=== PATIENT | female | born 1935 | race Caucasian/White ===

== ENCOUNTER → 2018-11-09 | Outpatient (CLI) | payer OTHER ==
[~2018-11-09] VITALS: Ht 175.3 cm; Wt 107.5 kg
[~2018-11-09] MED LIST: ADULT ASPIRIN R81 MG PO; AEROSPAN8.9 GM NASAL; ALLOPURINOL 10100 M2 PO; CALCI-CHEW500 MG PO; CARDIZEM CD 18180 M3 PO; CELEBREX50 MG PO; CELEXA40 MG PO; CITRUCEL479 GM PO; CLARITIN10 M3 PO; LEVOTHYROXINE100 MCG PO; LIPITOR10 MG PO; PLAVIX 75 MG TA75 M1 PO; ZANTAC300 MG PO; ZITHROMAX TRI-500 MG PO
[2018-11-09 12:37] LABS: HEMATOCRIT 28.9 % (37.0-47.0); HEMOGLOBIN 9.4 gm/dL (12.0-15.0); MCH 35.9 pg (26.0-34.0); MCHC 32.7 g/dL (28.0-37.0); RBC 2.63 mil/uL (4.20-5.00); RDW 17.9 % (10.5-14.5); WBC 12.4 thou/uL (4.0-11.0)
[2018-11-09 12:39] VITALS: BP 127/34
[2018-11-09 12:48] LABS: CALCIUM 8.8 mg/dL (8.5-10.1); CREATININE 5.9 mg/dL (0.6-1.0); POTASSIUM 4.1 mmol/L (3.5-5.1)
== END | disposition home or self-care (01) ==
LOC: SPEC 11:53
PROVIDERS: Nuclear Medicine Nuclear Cardiology
DX: I70.238 Atherosclerosis of native arteries of right leg with ulceration of other part of lower leg (principal); I70.1 Atherosclerosis of renal artery; I25.10 Atherosclerotic heart disease of native coronary artery without angina pectoris; I12.9 Hypertensive chronic kidney disease with stage 1 through stage 4 chronic kidney disease, or unspecified chronic kidney disease; N18.5 Chronic kidney disease, stage 5; I25.2 Old myocardial infarction; E78.5 Hyperlipidemia, unspecified; E78.00 Pure hypercholesterolemia, unspecified; E66.09 Other obesity due to excess calories; Z85.42 Personal history of malignant neoplasm of other parts of uterus; Z83.3 Family history of diabetes mellitus; Z82.49 Family history of ischemic heart disease and other diseases of the circulatory system; Z79.01 Long term (current) use of anticoagulants; Z79.82 Long term (current) use of aspirin; Z79.899 Other long term (current) drug therapy; Z99.2 Dependence on renal dialysis

== ENCOUNTER → 2018-11-16 | Outpatient (CLI) | payer OTHER ==
[~2018-11-16] VITALS: Ht 175.3 cm; Wt 107.5 kg
[~2018-11-16] MED LIST changes: +CELEBREX 200 M200 M1 PO; -CELEBREX50 MG PO; +COLACE100 MG PO; +COZAAR 25 MG TA25 M1 PO; +IMDUR 30 MG TAB30 M1 PO; +LASIX 40 MG TAB40 M2 PO; +NEPHROCAPS SOFT1 CAP PO; +NITROGLYCERIN0.4 MG SUBLING; +TUMS PO
[2018-11-16 11:06] VITALS: BP 107/35
== END | disposition home or self-care (01) ==
LOC: SPEC 08:14
DX: I70.212 Atherosclerosis of native arteries of extremities with intermittent claudication, left leg (principal); I25.10 Atherosclerotic heart disease of native coronary artery without angina pectoris; L97.929 Non-pressure chronic ulcer of unspecified part of left lower leg with unspecified severity; I12.0 Hypertensive chronic kidney disease with stage 5 chronic kidney disease or end stage renal disease; N18.5 Chronic kidney disease, stage 5; Z99.2 Dependence on renal dialysis; E78.00 Pure hypercholesterolemia, unspecified; Z95.5 Presence of coronary angioplasty implant and graft; Z83.3 Family history of diabetes mellitus; E66.9 Obesity, unspecified

== ENCOUNTER 2018-11-23 06:48 | Inpatient (IN) | payer OTHER ==
[~2018-11-23] VITALS: Ht 175.3 cm; Wt 108.2 kg
--- NOTE | ~2018-11-23 | O ---
[facility] [place] [address] OPERATIVE REPORT Name: SHERRY TOLLIVER Room #: 226-P [facility] IN M.R.#: [id number] Admission: 11/23/18 ������������������ Attend Phys: Silas Myers MD Discharge: 11/27/18 ������������������ Date of : 35 Report #: [id number] THIS REPORT FOR: //name// CC: FAM unknown Silas Mo DATE OF SERVICE: 11/24/2018 SURGEON: Demetrius Saravia DPM PREOPERATIVE DIAGNOSIS: Gangrene and osteomyelitis, toes, left foot. POSTOPERATIVE DIAGNOSIS: Gangrene and osteomyelitis, toes, left foot. PROCEDURE: Transmetatarsal amputation, left foot. ANESTHESIA: General endotracheal. HEMOSTASIS: None. COMPLICATIONS: None. DESCRIPTION OF PROCEDURE: The patient was taken to the OR in satisfactory condition and placed on the table in the supine position. Following satisfactory administration of general endotracheal intubation anesthesia, a total of 15 mL of a 50:50 mixture of 1% plain lidocaine and 0.5% plain Marcaine was used circumscribing the left forefoot. A well-padded ankle tourniquet was placed around the left ankle in case hemostasis was required. The foot was then prepped and draped in the usual sterile manner. A surgical marker was used to draw out the planned surgical incision with 2 semielliptical-type incisions. A 15 blade was used to make the incision through skin and dermis tissue. All bleeders were clamped and bovied as deemed necessary. The incision was carried down to the level of the deep fascia. The extensor and flexor tendons were identified. They were retracted as far distally as possible and transected proximally. The incision was carried down to the level of bone. A lanier elevator was used to free the periosteal tissue proximal to the surgical neck of the metatarsals. A power sagittal saw was used to create an osteotomy proximal to the second metatarsal head. This was made through and through. The length of the second metatarsal was then used as a reference to make the bone cuts in the first, third, fourth and fifth metatarsals. These were done through and through. The bone cuts were made in an angle from distal to proximal in the medial aspect of the first metatarsal and the lateral aspect of the fifth metatarsal was also transected with a power sagittal saw. Any remaining capsular tissue or tendinous structures were resected from the plantar aspect of the surgical flap. It was deemed necessary to reduce the length of the second [facility] [address] [place] [address] OPERATIVE REPORT Name: SHERRY TOLLIVER Room #: 226-P DIS IN .R.#: [id number] Admission: 11/23/18 ������������������ Attend Phys: Silas Myers MD Discharge: 11/27/18 ������������������ Date of : 35 Report #: [id number] metatarsal and this was done with a power sagittal saw. A manual bone rasp was used to smooth the stumps of the metatarsals. A copious sterile saline antibiotic flush was performed. Any remaining bleeders were clamped and bovied as deemed necessary. Excellent perfusion to the surgical flap was appreciated. Hemostasis was not required during the case. The tissue was beefy red and healthy. No gangrenous tissue was noted within the surgical flap. The flap was positioned in place and the deep tissue was coapted using #3-0 Vicryl in a simple interrupted manner. Subcutaneous tissue was closed using #4-0 Vicryl in a simple interrupted fashion. It was deemed necessary to remove the dog ear at the lateral aspect of the incision. This was done sharply with a 15 blade. Excellent coaptation of the incision was appreciated. The skin incision was closed using #3-0 nylon in a horizontal mattress fashion. The skin incision was dressed with Betadine impregnated Adaptic, 4 x 4 gauze, overlying Kerlix and Elfego bandage. The patient tolerated the procedure and anesthesia well and left the OR in satisfactory condition. It should be noted that prior to closure, a Jeanette drain was placed within the surgical site and was noted to be freely movable. ��������������������������������������������� ���������������������������������������� By: ��������������������������������������������� 1204 1540 Demetrius Saravia DPM /deep
[~2018-11-23 06:48] MED LIST changes: -COLACE100 MG PO; -COZAAR 25 MG TA25 M1 PO; -IMDUR 30 MG TAB30 M1 PO; -LASIX 40 MG TAB40 M2 PO; -NEPHROCAPS SOFT1 CAP PO; -NITROGLYCERIN0.4 MG SUBLING; -TUMS PO
[2018-11-23 11:58] VITALS: BP 109/32
[2018-11-23] MEDS ORDERED: LASIX 40 MG TAB40 M2 PO (12:02)
[2018-11-23] MEDS ORDERED: IMDUR 30 MG TAB30 M1 PO (12:03)
[2018-11-23] MEDS ORDERED: COZAAR 25 MG TA25 M1 PO (12:04)
[2018-11-23] MEDS ORDERED: NEPHROCAPS SOFT1 CAP PO (12:05)
[2018-11-23] MEDS ORDERED: TUMS PO (12:06)
[2018-11-23] MEDS ORDERED: NITROGLYCERIN0.4 MG SUBLING (12:06)
[2018-11-23] MEDS ORDERED: COLACE100 MG PO (12:07)
[2018-11-23 12:45] LABS: BASOPHILS 0.7 % (0.0-2.0); EOSINOPHILS 1.5 % (0.0-3.0); HEMATOCRIT 28.5 % (37.0-47.0); HEMOGLOBIN 9.8 gm/dL (12.0-15.0); LYMPHOCYTES 18.8 % (24.0-44.0); MCH 37.3 pg (26.0-34.0); MCHC 34.2 g/dL (28.0-37.0); MCV 109.1 fL (80.0-100.0); MONOCYTES 9.5 % (1.0-8.0); PLATELET COUNT 394 thou/uL (150-400); POLYS 69.5 % (36.0-66.0); RBC 2.62 mil/uL (4.20-5.00); RDW 17.8 % (10.5-14.5)
[2018-11-23 13:02] LABS: CALCIUM 9.6 mg/dL (8.5-10.1); CREATININE 5.7 mg/dL (0.6-1.0); MAGNESIUM 2.2 mg/dL (1.8-2.4); POTASSIUM 4.1 mmol/L (3.5-5.1); TOTAL BILIRUBIN 0.4 mg/dL (<0.1-1.0); TOTAL PROTEIN 8.8 g/dL (6.4-8.2)
[2018-11-23 14:10] LABS: ANISOCYTOSIS 2+; MACROCYTES 2+; PLATELET ESTIMATE NORMAL
--- NOTE | 2018-11-23 14:40 | NUR ---
INITIAL ASSESSMENT: Pt evaluated for d/c planning needs. Reviewed chart and spoke with nurse and pt. Pt is alert and oriented. Pt lives in house with 90 year old spouse. Pt has no children. Pt has walker at home. Pt has dialysis at [facility] and drives herself. Pt went to SNF after previous knee surgery and had home health. Will follow for d/c planning needs.
--- NOTE | 2018-11-23 15:29 | NUR ---
PT ADMITTED TO ROOM 430. PT ALERT XS 4. ADMITTED FOR GANGRENE OF LEFT TOE GANGRENE PATIENT TO BE NPO AT [facility] SURGERY 11/24/18. IV NURSE STATRTED IV RIGHT ARM. PT TO HAVE CHEST X- RAY AND EKG. PT ATE LUNCH. DRSG CHANGED AND PICTURE OF LEFT FOOT TAKEN. PT W/O PAIN WILL CALL DOCTOR FOR SOMETHING FOR CONSTIPATION.
[2018-11-23 16:56] VITALS: BP 113/101
--- NOTE | 2018-11-23 17:25 | NUR ---
ATTEMPT TO GET UA BY USING STRAIGHT CATH UNABLE TO OBTAIN URINE PT STATES HAS HAD NO URINE SINCE STATRTING DIAYLSIS. WILL PASS TO PROJECT CONTROL ANALYST.
--- NOTE | 2018-11-23 18:34 | NUR ---
PT RESTING IN BED NO PAIN OR RESP DISTRESS. EKG COMPLETED. WILL HAVE NIGHT NURSE TRY TO GET URINE SPECIMEN. PT PLEASANT AND COOPERATIVE WITH CARE.
[2018-11-23 20:52] VITALS: BP 103/45
--- NOTE | 2018-11-24 03:36 | NUR ---
ASSUMED PT CARE 1899. PT ALERT AND ORIENTED. REASSESSMENT COMPLETED. IV DRESSING C/D/I, NO SIGNS OF INFITLRATION- REINFORCED WITH TAPE. JOCELYNE AV FISTULA. PT DENIES PAIN, DENIES N/V AT THIS TIME. PT ANXIOUS ABOUT SX AND OUTCOME/RECOVERY TOMORROW. PT NPO AT MIDNIGHT. PT CALL LIGHT AND PERSONAL BELONGINGS WITHIN REACH EILL CONTINUE POC UNTIL EOS.
[2018-11-24 05:08] VITALS: BP 115/45
[2018-11-24 06:01] LABS: BASOPHILS 0.5 % (0.0-2.0); EOSINOPHILS 2.6 % (0.0-3.0); LYMPHOCYTES 17.7 % (24.0-44.0); MCH 35.1 pg (26.0-34.0); MCHC 32.1 g/dL (28.0-37.0); MCV 109.3 fL (80.0-100.0); MONOCYTES 8.7 % (1.0-8.0); PLATELET COUNT 360 thou/uL (150-400); POLYS 70.5 % (36.0-66.0); RBC 2.56 mil/uL (4.20-5.00); RDW 17.7 % (10.5-14.5); WBC 11.3 thou/uL (4.0-11.0)
[2018-11-24 06:03] LABS: CALCIUM 8.9 mg/dL (8.5-10.1); MAGNESIUM 2.2 mg/dL (1.8-2.4); POTASSIUM 4.5 mmol/L (3.5-5.1)
[2018-11-24 06:10] LABS: CREATININE 7.1 mg/dL (0.6-1.0)
[2018-11-24 07:36] LABS: ANISOCYTOSIS 1+; MACROCYTES 1+; POLYCHROMASIA OCCASIONAL
--- NOTE | 2018-11-24 08:29 | EKG ---
[place] [address] [facility] [place] [address] ELECTROCARDIOGRAM REPORT Name: SHERRY TOLLIVER Room #: 430-P ADM IN M.R.#: [id number] ������������������ Admission: 11/23/18 ������������������ Attend Phys: Silas Myers MD Discharge: ������������������ Date of : 35 Report #: [id number] ����������������������������������������������������������������� [id number] THIS REPORT FOR: //name// [facility] Test Date: 2018-11-23 Test Time: 17:25:58 Pat Name: SHERRY TOLLIVER Department: Room: 430 P Gender: F Optometrist: Faye ELKINS : 1935 Requested By: Sushma James Order Number: [id number] MD: Kash Herman Measurements Intervals [place] Rate: 72 P: -32 FL: 164 QRS: -12 QRSD: 149 T: 147 QT: 422 QTc: 462 Interpretive Statements Sinus rhythm Left bundle branch block Baseline wander in lead(s) V1 No previous ECG available for comparison Electronically Signed On 11-24-2018 8:28:53 CDT by Kash Herman [email or web address] ��������������������������������������������� <ELECTRONICALLY SIGNED> ���������������������������������������� By: Kash Herman MD, [facility] ��������������������������������������������� 11/24/18 0828 1725 1725 Kash Herman MD, [facility] /EPI
--- NOTE | 2018-11-24 09:48 | NUR ---
PT IN PROCEDURE AT BEGINNING OF SHIFT. WILL WAIT FOR RETURN.
[2018-11-24 10:31] VITALS: BP 118/37
--- NOTE | 2018-11-24 11:32 | NUR ---
PT ARRIVED TO ROOM FROM PACU IN STABLE CONDITION AT 10:24 VIA CART. S/P LEFT METATARSAL AMPUTATION, SURGICAL DRESSING IN PLACE. NO BLEEDING OR DRAINAGE NOTED. LEFT FOOT ELEVATED ON PILLOWS. INSTRUCTED TO USE WALKER. ROOM AIR. NO SOA. LOW BP NOTED, HX HTN, AM BP MEDS HELD. NO N/V, TOLERATING CLEARS. HYPOACTIVE BOWEL SOUNDS, NO BM FOR THREE DAYS, MEDS GIVEN ORDERED.
--- NOTE | 2018-11-24 13:36 | NUR ---
WOUND CONSULT; ROUNDING WITH DR KATINA CRYSTAL TODAY. TRANSMET AMPUTATION DONE THIS AM. SURGICAL DRESSING IN PLACE AND INTACT NO STRIKE THROUGH BLEEDEING NOTED. DR COOK ANSWERED ALL QUESTIONS PRESENTED. PATIENT SEEMS POSITIVE AT THIS TIME AND STATES THE POWER OF PRAYER GETS ME THROUGH WE WILL FOLLOW UP TOMORROW. DISCUSSED WITH JONELLE
--- NOTE | 2018-11-24 19:40 | NUR ---
PT LEFT FOR DIALYSIS AT 14:00, RETURNED IN STABLE CONDITON AT 18:45. VSS. BP IMPROVED. C/O LEFT FOOT PAIN, PAIN MEDS GIVEN ORDERED. NO OTHER CHANGE IN STATUS. END OF SHIFT.
[2018-11-24 23:08] VITALS: BP 115/22
[2018-11-25 03:06] VITALS: BP 112/31
--- NOTE | 2018-11-25 03:19 | NUR ---
ASSUMED PT CARE 1900. PT ALERT AND ORIENTED. REASSESSMENT COMPLETE. PT DENIES N/V. PT REPORTS MINIMAL PAIN AND SOME ANXIETY. SURGICAL DRESSING C/D/I. IV DRESSING C/D/I, NO SIGNS OF INFILTRATION. WILL CONTINUE POC UNTIL EOS.
[2018-11-25 05:56] LABS: HEMATOCRIT 26.8 % (37.0-47.0); HEMOGLOBIN 8.8 gm/dL (12.0-15.0); MCH 35.5 pg (26.0-34.0); MCHC 32.8 g/dL (28.0-37.0); MCV 108.2 fL (80.0-100.0); RBC 2.48 mil/uL (4.20-5.00); RDW 18.6 % (10.5-14.5); WBC 11.6 thou/uL (4.0-11.0)
[2018-11-25 06:07] LABS: POTASSIUM 4.9 mmol/L (3.5-5.1)
[2018-11-25 06:08] LABS: CREATININE 4.8 mg/dL (0.6-1.0)
--- NOTE | 2018-11-25 08:38 | NUR ---
ASSUMED CARE OF PT AT 0700. ASSESSMENT COMPLETED. A&O,X4. C/O LEFT FOOT PAIN POD 1 TRANSMETATARSAL AMPUTATION. SURGICAL DRESSING IN PLACE, DRIED BLOOD AND DRAINAGE NOTED. HEEL WEIGHT BEARING WITH WALKER. PAIN MEDS GIVEN ORDERED. ROOM AIR. HX SLEEP APNEA, CPAP AT HOME. ESRD, JOCELYNE FISTULA W/BRUIT AND THRILL. SOFT BP NOTED, BP MEDS HELD. NO BM FOR SEVERAL DAYS, MEDS GIVEN ORDERED. SKIN INTACT. WILL CONTINUE TO MONITOR.
--- NOTE | 2018-11-25 10:08 | NUR ---
PATIENT ARRIVED TO SENIOR SUITES AT 0945.PATIENT IS ALERT AND ORIENTED X4.PT IS ORIENTED TO ROOM.VITALS WERE TAKEN.PT HAS NO COMPLIANS OF PAIN AT THIS TIME.CALL LIGHT,PHONE, AND PERSONAL BELONGINGS ARE WITHIN REACH.
[2018-11-25 10:11] VITALS: BP 136/36
[2018-11-25 19:40] VITALS: BP 106/50
--- NOTE | 2018-11-26 04:40 | NUR ---
ASSUMED CARE OF PATIENT AT 190. VSS. ASSESSMENT COMPLETED AT 2046 AND IS DOCUMENTED. SURGICAL DRSG ON LEFT FOOT C/D/I. PT CONTINUES TO BE HEEL WEIGHT BEARING ONLY, AMBULATING TO TOILET WITH WALKER WITHOUT DIFFICULTY. LEFT UPPER ARM FISTULA BRUIT PALPATED, THRILL AUSCULTATED. RIGHT UPPER ARM PIV PATENT AND SALINE LOCKED. PT ON 2L VIA NC AT NIGHT D/T INABILITY TO TOLERATE HOSPITAL'S CPAP MACHINE. PT STATED THAT "IT WAS TOO MUCH OF A HASSLE TO BRING HER CPAP FROM HOME". PT HAD SEVERAL BMS YESTERDAY. SENNAKOT AND MIRALAX HELD AT HS. PT OLIGURIC D/T ESRD. PT CURRENTLY SLEEPING SOUNDLY IN BED IN NO ACUTE DISTRESS. CALL LIGHT WITHIN REACH. BED LOCKED AND IN LOWEST POSITION. TM.
--- NOTE | 2018-11-26 06:26 | NUR ---
THIS NURSE AGREES WITH ASSESSMENT AND NOTES FROM FLOOR SANDING MACHINE OPERATOR ON THIS PATIENT.
[2018-11-26 08:00] VITALS: BP 105/58
--- NOTE | 2018-11-26 14:23 | NUR ---
ASSUMED CARE OF PT AROUND 0715, A&0X4, USES CALL LIGHT FOR NEEDS. C/O SOA LATER IN THE DAY WHEN ASKED WHEN IT STARTED SHE STATES AFTER SHE ATE HER CHEESECAKE. 99% ON ROOM AIR, PT LYING STRAIGHT UP IN BED. UNCOLLECTED URINE, WHEN HAT AND LAB BOTTLE BROUGHT SHE STATES SHE IS ANURIC. ENCOURAGED HER TO USE CALL LIGHT FOR ANY NEEDS
--- NOTE | 2018-11-26 19:06 | NUR ---
PT'S B/P WAS LOW D/T HYDROCODONE ADM AND 02 SATS, HELD FOR OVER 45 SEC, SHOW HER AT 98% ON RA. PT STATES DR SLOAN REMINDED HER NOT TO TAKE HYDROCODONE UNLESS SHE WAS IN SEVERE PAIN. WILL REPORT OFF TO NOC NURSE ABOUT THE TYLENOL AVAILABLE.
[2018-11-26 19:43] VITALS: BP 140/114
[2018-11-27 02:00] VITALS: BP 77/47
--- NOTE | 2018-11-27 05:42 | NUR ---
Assumed care at 2345. Pt IV came off while she was sleeping. Placed new one on her left AC. Pt stated she was feeling funny, check her vitals and BP was low. Called CLINICAL SCIENTIST and got an approval for onetime bolus of NS. No identified needs at the moment. Call light within reach. Will continue to monitor.
[2018-11-27 06:47] VITALS: BP 93/41
[2018-11-27 07:45] VITALS: BP 118/92
--- NOTE | 2018-11-27 07:58 | HC ---
[facility] [place] [address] CONSULTATION Name: SHERRY TOLLIVER Room #: 226-P [facility] IN .R.#: [id number] Admission: 11/23/18 ������������������ Attend Phys: Silas Myers MD Discharge: ������������������ Date of : 35 Report #: [id number] THIS REPORT FOR: //name// CC: FAM unknown Silas Mo DATE OF SERVICE: 11/24/2018 CHIEF COMPLAINT: Left foot infection. HISTORY OF PRESENT ILLNESS: This is an 83-year-old female patient who was evaluated in the wound clinic yesterday by Dr. Mo. The patient was noted to have increasing drainage and pain in her left foot, in particular her left great toe over the last 3 months. She has undergone previous percutaneous intervention for left SFA atherectomy on 11/16/2018. The wound, however, is increasingly worse. She was seen by Dr. Saravia who did a transmetatarsal amputation this morning. ALLERGIES: INCLUDE CIPROFLOXACIN, LEVAQUIN, PENICILLIN, SULFA, AND TRIMETHOPRIM. MEDICATIONS: Include diltiazem, allopurinol, Celebrex, Lasix, Imdur, Cozaar, Nephrocaps, Nitrostat, Colace, Lipitor, aspirin, Plavix, flunisolide nasal spray, Synthroid, Claritin, Zantac. PAST MEDICAL HISTORY: Positive for peripheral arterial disease, coronary artery disease, end-stage renal disease with hemodialysis, hypercholesterolemia, hypertension, hypothyroidism. SOCIAL HISTORY: Negative for alcohol or tobacco use. FAMILY HISTORY: Noncontributory. REVIEW OF SYSTEMS: CONSTITUTIONAL: The patient denies fever, chills, weight loss. NEUROLOGICAL: The patient denies focal weakness, numbness, tingling. EYES: The patient denies visual changes, redness or drainage. ENT: The patient denies earache, nasal drainage or sore throat. CARDIOVASCULAR: The patient denies chest pain, palpitations, diaphoresis. PULMONARY: The patient denies cough, short of breath. GASTROINTESTINAL: The patient denies nausea, vomiting or abdominal pain. ORTHOPEDIC: The patient has some pain postoperatively in her left foot, but she is feeling relatively well. Other systems in a 14-point review of systems are negative. [address] [address] CONSULTATION Name: SHERRY TOLLIVER Room #: 226-[facility] IN [facility].#: [id number] Admission: 11/23/18 ������������������ Attend Phys: Silas Myers MD Discharge: ������������������ Date of : 35 Report #: [id number] PHYSICAL EXAMINATION: VITAL SIGNS: At this time include, respiratory rate of 16, pulse rate 77, blood pressure 105/37. GENERAL: This is a chronically ill-appearing female patient who appears to be in no distress. HEENT: Head normocephalic. Nose and throat clear. NECK: Supple. LUNGS: Clear. ABDOMEN: Soft. Bowel sounds present. EXTREMITIES: Lower extremities demonstrate post-surgical dressing is intact on the left foot. It was not removed. There is no strikethrough bleeding or drainage noted at this time. CLINICAL IMPRESSION: 1. Diabetic foot infection, now status post transmetatarsal amputation. 2. Peripheral arterial disease, status post recent percutaneous intervention. RECOMMENDATIONS: At this point in time, we will relieve the postsurgical dressing in place today. It can be changed by either the Wound Care Service or Podiatry tomorrow. We will likely do the Xeroform gauze and dry gauze secondary dressing or silver alginate depending on the appearance of the incision line. I appreciate being asked to see the patient in consultation. ��������������������������������������������� <ELECTRONICALLY SIGNED> ���������������������������������������� By: rByn Hatch MD ��������������������������������������������� 11/27/18 0758 1521 0615 Bryn Hatch MD /nt
[2018-11-27 08:54] VITALS: BP 118/92
--- NOTE | 2018-11-27 12:09 | NUR ---
ASSUMED PATIENT AND CARES AT 0715, PATIENT SITTING UP ON THE SIDE OF THE BED, COMPLIANT WITH LLE DANGLING, LLE DRESSING C/D/I, A&OX4, MAKES NEEDS KNOWN, C/O HEADACHE 5/10 AND NAUSEA, PATIENT RECEIVED PRN TYLENOL AND ZOFRAN PRIOR TO SHIFT CHANGE, FALL PRECAUTIONS IN PLACE, RAC SALINE LOCK INTACT, PERSONAL BELONGINGS AND CALL LIGHT IN REACH, WILL CONTINUE TO MONITOR
--- NOTE | 2018-11-27 14:25 | NUR ---
PHYSICAL THERAPIST FOUND PATIENT UNRESPONSIVE SITTING ON SIDE OF BED CODE RENU INITIATED, PATIENT POSITIONED IN BED PROPERLY AND CPR STARTED APPROXIMATELY 916, OZZY SEARS TEAM ARRIVED AND LIFE SUSTAINING MEASURES CONTINUED, NURSE SPOKE WITH FAMILY AT 0928, NURSE TEAM CONTINUED RESUSCITATION MEASURES, PATIENT DID NOT SUCCESSFULLY RESPOND TO MEASURES, PHYSICIAN CALLED TIME OF AT 1005, NURSE SPOKE WITH FAMILY TO INFORM THEM OF PATIENT STATUS, MTN CALLED AT 1018, PATIENT DID NOT MEET MTN QUALIFICATIONS, PATIENT AND ROOM CLEANED AND READY FOR FAMILY, FAMILY ARRIVED AND MET WITH HAT STOCK LAMINATING MACHINE OPERATOR, NURSE INFORMED CONSULTING PHYSICIAN OF PATIENT STATUS, FAMILY LATER CALLED NURSE WITH HOME INFORMATION, NURSE REACHED OUT TO [facility] AND [facility] FOR CARTOON ANIMATOR, AT ABOUT 1445 SECURITY ESCORTED MORTUARY STAFF TO RETRIEVE PATIENT BODY
--- NOTE | 2018-11-27 14:55 | NUR ---
I AGREE WITH NURSING ASSESSMENT DONE BY AMANDA/LAVERNE.
--- NOTE | 2018-11-28 16:06 | PATH ---
[facility] [address] [place] [address] PATHOLOGY RPT PROCEDURE Name: PARIS TOLLIVER Room #: 226-P DIS IN M.R.#: [id number] ������������������ Admission: 11/23/18 ������������������ Date of : 35 Discharge: 11/27/18 Report #: [id number] Path Case #: [id number] [facility] Accession Number: [id number] . 01 Material submitted: . TRANSMETATARSAL AMPUTATION, LEFT FOOT . 01 Clinical history: . Gangrene and osteomyelitis left foot . 02 Diagnosis: Foot, left foot, transmetatarsal amputation: - Necrotic and mummified toes. - Ulceration along with marked acute inflammation, as well as gangrenous necrosis of the surface. - Marked acute inflammation extending into underlying bones associated with acute and chronic osteomyelitis. - Bone and skin margins on all toes viable. (IUV:dylan; 11/28/2018) MBR/11/28/2018 . 02 Electronically signed: . Shanna Mercer MD, Pathologist NPI- [id number] . 01 Gross description: . The specimen is received in formalin, labeled "Paris Tolliver, transmetatarsal amputation, left foot", is a transmetatarsal amputation measuring 8.2 cm from first digit bone resection margin to distal tip and up to 9.7 cm in width. The proximal skin and bone margins appear viable. The first digit's medial and plantar aspect and the third digit's dorsal aspect including the nail is black-brown, necrotic and mummified. Sectioning through these lesions show a necrotic underlying soft tissue that extends to the bone. The remaining digits 2, 4 and 5 show no ulceration or necrosis. Commissions Specialist tissue is submitted as follows: A1. Proximal skin and bone margin, first digit, after decalcification A2. Proximal skin and bone margins, second digit, after decalcification A3. Proximal skin and bone margins, though digit, after decalcification A4. Proximal skin and bone margins, fourth digit, after decalcification A5. Proximal skin and bone margins, fifth digit, after decalcification A6. Cross section of first digit through the lesion, after decalcification A7. Cross section of digit through the lesion after decalcification (SWS; 11/27/2018) [facility] . [address] [address] PATHOLOGY RPT PROCEDURE Name: PARIS TOLLIVER Room #: 226-P DIS IN M.R.#: [id number] ������������������ Admission: 11/23/18 ������������������ Date of : 35 Discharge: 11/27/18 Report #: [id number] Path Case #: [id number] Pathologist provided ICD-10: L97.529, L08.9, M86.172, M86.172 . 02 CPT . 949534, [id number] Specimen Comment: A courtesy copy of this report has been sent to Specimen Comment: [phone], . Specimen Comment: Report sent to / DR ROBBINS Performed at: [address] [facility] [address], [place], [place] [id number] MD Sidney Richardson MD Phone: [phone] Performed at: [address] [facility] [address] [id number] MD Shanna Mercer MD Phone: [phone]
--- NOTE | 2018-11-29 11:16 | HC ---
[facility] [place] [address] CONSULTATION Name: SHERRY TOLLIVER Room #: 226-P [facility] IN M.R.#: [id number] Admission: 11/23/18 ������������������ Attend Phys: Silas Myers MD Discharge: 11/27/18 ������������������ Date of : 35 Report #: [id number] THIS REPORT FOR: //name// CC: FAM unknown Silas Mo REASON FOR THE CONSULTATION: End-stage renal disease. HISTORY OF PRESENT ILLNESS: An 83-year-old with past medical history of end-stage renal disease, hypertension, severe peripheral vascular disease. She recently had a left superficial femoral artery atherectomy back in October the after worsening of her left foot wound. Unfortunately, the issues with her wound continued to worsen. She presented from the wound clinic yesterday. She had some discharge associated with foul smelling from the left big toe. She is planned to go for transmetatarsal amputation. From the dialysis perspective, the patient has been maintained on dialysis with [facility]. She dialyzes every Tuesday, Tuesday and Tuesday. I am being consulted to manage her end-stage renal disease issues. PAST MEDICAL HISTORY: 1. Peripheral vascular disease. 2. End-stage renal disease. 3. Hyperlipidemia. 4. Hypothyroidism. 5. Hysterectomy. 6. Multiple stents of the lower extremities and the coronaries. 7. Total knee replacement. 8. Tonsillectomy. 9. Cataracts. FAMILY HISTORY: Hypertension and diabetes mellitus. SOCIAL HISTORY: No drug or alcohol abuse. ALLERGIES: PENICILLIN. MEDICATIONS: 1. Diltiazem. 2. Furosemide. 3. Losartan. 4. Atorvastatin. 5. Aspirin. 6. Plavix. 7. Levothyroxine. 8. Loratadine. [facility] [address] [place] [address] CONSULTATION Name: SHERRY TOLLIVER Room #: 226-P [facility] IN ..#: [id number] Admission: 11/23/18 ������������������ Attend Phys: Silas Myers MD Discharge: 11/27/18 ������������������ Date of : 35 Report #: [id number] REVIEW OF SYSTEMS: GENERAL: No fever or chills. CARDIOVASCULAR: No chest pain or palpitation. PULMONARY: No cough or hemoptysis. GASTROINTESTINAL: No nausea or vomiting. MUSCULOSKELETAL: As per the history of present illness. SKIN: As per the history of present illness. PHYSICAL EXAMINATION: GENERAL: She is alert, oriented, evaluated in the preoperative area. VITAL SIGNS: Temperature is 37, pulse rate is 89 and blood pressure is 115/45. HEAD AND NECK: No jugular venous distention. CHEST: Decreased air entry bilaterally. CARDIOVASCULAR: No rub detected. ABDOMEN: Soft and nontender. LOWER EXTREMITIES: No edema. Left foot with gangrenous changes on the distal part of the left big toe and second toe. LABORATORY DATA: Reviewed. Hemoglobin is 9. Chemistry from today revealed a sodium of 134, potassium of 4.5, BUN of 44 and a creatinine of 7.1. RADIOLOGICAL DATA: MRI of the left toe revealed osteomyelitis involving multiple toes. ASSESSMENT, IMPRESSION AND PLAN: 1. End-stage renal disease. 2. Severe peripheral vascular disease. 3. Left gangrenous and osteomyelitic changes. 4. Hypertension. 5. We will arrange for the patient to have her usual dialysis every Tuesday, Tuesday and Tuesday. 6. She has gone for an amputation of her gangrenous toes. 7. We will continue to follow along. ��������������������������������������������� <ELECTRONICALLY SIGNED> ���������������������������������������� By: Nikolai Rodriguez MD ��������������������������������������������� 11/29/18 1116 0804 2348 Autumn Loya MD /nt
== END 2018-11-27 10:05 | DRG 239 ==
LOC: HYPER 06:48 → 4E 11:07 → SICU 11-25 09:39
PROVIDERS: Nurse Practitioner; ADMIT Hospitalist
PROC: 0Y6N0ZC Detachment at Left Foot, Partial 3rd Ray, Open Approach (ICD-10-PCS; principal; 2018-11-24)
PROC: 0Y6N0ZF Detachment at Left Foot, Partial 5th Ray, Open Approach (ICD-10-PCS; principal; 2018-11-24)
PROC: 0Y6N0Z9 Detachment at Left Foot, Partial 1st Ray, Open Approach (ICD-10-PCS; principal; 2018-11-24)
PROC: 5A1D70Z Performance of Urinary Filtration, Intermittent, Less than 6 Hours Per Day (ICD-10-PCS; principal; 2018-11-24)
PROC: 0Y6N0ZB Detachment at Left Foot, Partial 2nd Ray, Open Approach (ICD-10-PCS; principal; 2018-11-24)
PROC: 0Y6N0ZD Detachment at Left Foot, Partial 4th Ray, Open Approach (ICD-10-PCS; principal; 2018-11-24)
PROC: 5A1D70Z Performance of Urinary Filtration, Intermittent, Less than 6 Hours Per Day (ICD-10-PCS; 2018-11-27)
PROC: 0BH17EZ Insertion of Endotracheal Airway into Trachea, Via Natural or Artificial Opening (ICD-10-PCS; 2018-11-27)
PROC: 5A12012 Performance of Cardiac Output, Single, Manual (ICD-10-PCS; 2018-11-27)
DX: E11.52 Type 2 diabetes mellitus with diabetic peripheral angiopathy with gangrene (principal); N18.6 End stage renal disease; I12.0 Hypertensive chronic kidney disease with stage 5 chronic kidney disease or end stage renal disease; M86.8X7 Other osteomyelitis, ankle and foot; Z96.659 Presence of unspecified artificial knee joint; E11.69 Type 2 diabetes mellitus with other specified complication; K58.9 Irritable bowel syndrome, unspecified; K57.90 Diverticulosis of intestine, part unspecified, without perforation or abscess without bleeding; L03.032 Cellulitis of left toe; L97.529 Non-pressure chronic ulcer of other part of left foot with unspecified severity; I25.10 Atherosclerotic heart disease of native coronary artery without angina pectoris; E78.5 Hyperlipidemia, unspecified; E03.9 Hypothyroidism, unspecified; Z90.710 Acquired absence of both cervix and uterus; Z82.49 Family history of ischemic heart disease and other diseases of the circulatory system; Z83.3 Family history of diabetes mellitus; Z88.0 Allergy status to penicillin; Z95.828 Presence of other vascular implants and grafts; Z88.2 Allergy status to sulfonamides; Z88.1 Allergy status to other antibiotic agents; Z88.8 Allergy status to other drugs, medicaments and biological substances; Z79.84 Long term (current) use of oral hypoglycemic drugs
CPT/HCPCS: 10783; 15002; 32100; 50010; 50101; 50386; 53010; 56524; 56526; 56527; 57091; 57178; 62110; 62900; 70005